=== PATIENT | female | born 1935 | race Caucasian/White ===

== ENCOUNTER → 2024-04-02 10:52 | Outpatient (REF) | payer OTHER, SELFPAY | LOC: HWRAD 10:52 | PROVIDERS: ATTENDING PHYSICIAN Student in an Organized Health Care Education/Training Program | DX: M43.9 Deforming dorsopathy, unspecified (principal) | CPT/HCPCS: 72072; 72110 ==

== ENCOUNTER → 2024-06-18 10:59 | Outpatient (REF) | payer OTHER, SELFPAY | LOC: HWRAD 10:59 | PROVIDERS: ATTENDING PHYSICIAN Student in an Organized Health Care Education/Training Program | DX: R05.1 Acute cough (principal) | CPT/HCPCS: 71046 ==

== ENCOUNTER 2024-08-11 12:47 | Observation (INO) | payer OTHER, SELFPAY ==
[2024-08-11] VITALS (9 sets, daily range): BP systolic 137–180; BP diastolic 57–142; PULSE 52; O2SAT 99; BMI 22.4
--- NOTE | 2024-08-11 07:52 | ED.GENMED ---
History of Present Illness
General
Chief Complaint: Dizziness
Time Seen by Provider: 08/11/24 07:51
History of Present Illness
History of Present Illness:
TIME OF INITIAL ENCOUNTER: 8 AM
HPI:
The patient is been having intermittent dizziness for the past 2 weeks. Today the symptoms worsened and were also present when she was laying flat. She has associated nausea. She came in by ambulance from home. She has no significant headache.
EXAM:
GENERAL: Well appearing but in mild distress mild
HEENT: Moist oral mucosa
CARDIOVASCULAR: No murmurs, normal heart rate, regular rhythm, No chest wall tenderness
PULMONARY: No respiratory distress, breath sounds are clear and equal
ABDOMEN: Soft with no peritoneal signs, no tenderness
NEUROLOGIC: Excellent strength all extremities, finger-nose normal on the right, maybe some very minimal impairment on the left if any, very subtle rightward nystagmus, positive [place]-Hallpike maneuver when looking to the left
PSYCHIATRIC: Appropriate mental status, normal insight and judgement
EXTREMITIES: Nontender, no edema, moves all extremities equally
SKIN: No rash, no lesions
NUMBER AND COMPLEXITY OF PROBLEMS ADDRESSED AT THE ENCOUNTER
� Chronic conditions affecting care: Rheumatoid arthritis
� Acute Exacerbation and/or Progression of Chronic Illness: This is an acute problem
� Differential Diagnosis includes: BPPV, dysrhythmia, intracranial pathology, dehydration
AMOUNT AND/OR COMPLEXITY OF DATA TO BE REVIEWED AND ANALYZED
� I performed an independent evaluation of and my interpretation is:
EKG: Sinus 58, leftward axis deviation, right bundle branch block
CT: CAT scan of the brain shows no acute abnormality
X-rays:
Laboratory Studies: CBC and chemistries relatively unremarkable
Other:
� Review of other/old records: The patient had a CAT scan of her brain in 2015 which was unremarkable after an evaluation for trauma
� Clinical information was obtained by an independent historian:
� Prescriptions/Medications Considered but not given:
� Further testing considered but not performed:
RISK OF COMPLICATIONS AND/OR MORBIDITY OR MORTALITY OF PATIENT MANAGEMENT
� Social determinants of health affecting care: Lives at home by herself
� Discussion with other providers: Dr. Lowery, hospitalist, for admission
� Escalation of care including admission/observation vs risk of discharge considered: Given patient's age, CT imaging obtained. She has a positive [place]-Hallpike maneuver. Will try low-dose Valium and Zofran for symptom control.
ANY OTHER UPDATES:
9 AM: The patient was seen by PT who did not feel that she was safe enough to go home. I have asked Dr. Lowery for admission.
Phy Exam
Physical Exam
Physical Exam:
See HPI
Course
Orders/Labs/Results
Orders:
Orders
08/11/24 07:57
Electrocardiogram (*1) Urgent
Reason for Study: Vertigo / Dizzy
EKG- Treatment ONCE
08/11/24 07:59
Basic Metabolic Panel Urgent
Complete Blood Count/With Diff Urgent
08/11/24 08:02
Ondansetron Injectable [Zofran] 4 mg IV NOW STA
diazePAM [Valium Injection] 2 mg IV NOW STA
Physical Therapy Consult [Pt Eval And Treat] Urgent
Treatment: vertigo
Activity Level: Ambulate
08/11/24 08:03
CT Head W/o Iv Contrast Urgent
Comment:
Reason For Exam: intermittently severe vertigo
08/11/24 08:52
Troponin I Urgent
Abnormal Lab Results
08/11/24
07:59
RBC 3.83 L 10^6/uL
(4.20-5.40)
MCH 33.7 H pg
(27.0-31.0)
BUN 22 H mg/dl
(7-17)
Glucose 102 H mg/dl
(70-99)
08/11/24 07:59
08/11/24 07:59
Vital Signs
Initial and Last Documented VS:
Initial Vital Signs
Temp Pulse Resp BP Pulse Ox
97.8 F 57 16 166/87 99
08/11/24 07:47 08/11/24 07:47 08/11/24 07:47 08/11/24 07:47 08/11/24 07:47
Last Documented Vital Signs
Temp Pulse Resp BP Pulse Ox
97.8 F 63 18 180/82 99
08/11/24 07:47 08/11/24 10:00 08/11/24 10:00 08/11/24 10:00 08/11/24 07:47
*Critical Care Note
Total Time (30-74mins, 75-104mins- exclusive of procedures): Not Applicable
ED Attending Note
-
Portions of this chart may have been created with voice recognition software.� Occasional wrong word or��sound alike� substitutions may have occurred due to the inherent limitations of voice recognition software.
Discharge Plan
Departure
Patient Disposition: Admit
Date of Disposition: 08/11/24
Time of Disposition: 09:20
Presentation/result/management discussed w/ accepting MD/DO: Hospitalist
Discharge Problem:
Vertigo
Prescriptions:
No Action
methotrexate sodium 2.5 mg Tablet
15 mg PO FR
Theragen Tablet
1 tab PO MOWEFR
folic acid 1 mg Tablet
1 mg PO DAILY
magnesium oxide 400 mg magnesium Tablet
400 mg PO TUTH
Referrals:
Luanne Parry DO [Family Provider] -
Interventions
Interventions:
*Risk Screen - Suicide Last Done: 08/11/24 07:47
*General Assessment Last Done: 08/11/24 07:47
*Neglect/Abuse Screening Last Done: 08/11/24 07:47
*ED COVID-19 Vaccine History Last Done: 08/11/24 07:47
ED- Neurological Assessment Last Done: 08/11/24 08:10
ED Swallowing Screen Last Done: 08/11/24 08:41
Discharge Date and Time
Print Language: KYRGYZ
[2024-08-11 08:06] LABS: % Basophils 0.6 % (0-2); % Eosinophils 5.7 % (0-6); % Immature Granulocytes 0.2 % (0-0.5); % Lymphocytes 27.6 % (20.5-51.1); % Neutrophils 58.9 % (42.2-75.2); Absolute Eosinophils 0.3 10^3/uL (0-0.7); Absolute Lymphocytes 1.5 10^3/uL (1.2-3.4); Absolute Monocytes 0.4 10^3/uL (0.1-0.6); Absolute Neutrophils 3.2 10^3/uL (1.4-6.5); Hematocrit 37.4 % (37.0-47.0); Hemoglobin 12.9 g/dL (12.0-16.0); Mean Corp Hgb Conc. 34.5 g/dL (33.0-37.0); Mean Corpuscular Hgb 33.7 pg (27.0-31.0); Mean Corpuscular Volume 97.7 fL (81.0-99.0); Mean Platelet Volume 9.7 fL (7.4-10.4); Nucleated Red Blood Cells % 0 %; Platelet Count 180 10^3/uL (130-400); Red Blood Cell Count 3.83 10^6/uL (4.20-5.40); Red Cell Dist. Width 14.5 % (11.5-14.5); White Blood Cell Count 5.4 10^3/uL (4.8-10.8)
[2024-08-11 08:23] LABS: Blood Urea Nitrogen 22 mg/dl (7-17); Calcium 9.2 mg/dl (8.4-10.2); Carbon Dioxide 23 mmol/L (22-30); Chloride 107 mmol/L (98-107); Glucose 102 mg/dl (70-99); Sodium 141 mmol/L (135-145); eGFR > 60.00
[2024-08-11] MEDS: ZOFRAN 4 MG IV (08:30)
[2024-08-11] MEDS: VALIUM INJECTION 2 MG IV (08:30)
[2024-08-11 09:32] LABS: Troponin I < 0.012 ng/ml
--- NOTE | 2024-08-11 11:24 | HPS.HSE ---
Family Physician
-
Family Physician: Luanne Parry
Chief Complaint
-
dizziness
History of Present Illness
Ms. Theresa Patle is a 89 yo woman with hx RA, GERD, CKD III, HLD presents to the ER with dizziness.
Symptoms started on and off 2 weeks ago, occurring sometimes daily and lasting several minutes. Patient described getting up from chair and having symptoms of room spinning. This morning she had symptoms when laying in bed and they lasted nearly
20 minutes which is why she called 911. She now feels a bit uneasy but denies the intense spinning.
No difficulty speaking or swallowing. No weakness in arms or legs that's new (she has RA). No fevers/chills. + congestion last week, took a decongestant but stopped once dizziness started. No chest pain or shortness of breath. + nausea with
episodes, no vomiting. No abdominal pain. No LE swelling.
Medical History
Past Medical History
Past Medical History: Reports GERD, Hypercholesterolemia and Other (rheumatoid arthritis, CKD III)
Past Surgical History: Reports Appendectomy
Social History
Tobacco: Former Smoker
Alcohol: None
Family History
Family History: Not pertinent
Allergies / Home Medications
Allergies reflects when Allergies were last updated in [facility].
Home Medications with original date entered in [facility]
Allergy/Medication List:
Allergies
Allergy/AdvReac Type Severity Reaction Status Date / Time
No Known Allergies Allergy Unverified 12/01/15 15:45
Home Medications
folic acid 1 mg tablet 1 mg PO DAILY 08/11/24
magnesium oxide 400 mg PO TUTH 08/11/24
methotrexate sodium 2.5 mg tablet 15 mg PO FR 08/11/24
therapeutic multivitamin 1 tab PO MOWEFR 08/11/24
Review of Systems
-
History Source: Patient
A 12 point ROS was completed and negative except as noted: Yes
Physical Exam
Vital Signs
Vital Signs
Temp Pulse Resp BP Pulse Ox
97.8 F 63 18 180/82 99
08/11/24 07:47 08/11/24 10:00 08/11/24 10:00 08/11/24 10:00 08/11/24 07:47
Physical Exam
General: No Apparent Distress
HEENT: PERRLA
Respiratory: Clear; No Wheezes
Cardiac: S1/S2 and Regular Rhythm
GI: Soft and Non Tender
Musculoskeletal: No Edema
Neuro: AO x 3 and Other (5/5 strength upper and lower extremities; no pronator drift; speech normal, no facial droop, EOMI; no nystagmus on my exam; test of skew negative )
Psych: Calm
Laboratory Results
-
08/11/24 07:59
08/11/24 07:59
Laboratory Results
Total Bilirubin Cancelled 08/11/24 07:59
AST Cancelled 08/11/24 07:59
ALT Cancelled 08/11/24 07:59
Alkaline Phosphatase Cancelled 08/11/24 07:59
Troponin I < 0.012 ng/ml 08/11/24 08:52
Data Reviewed
-
Diagnostic Radiology: Report Reviewed by me
Lab Data: Labs Reviewed by me
Impression/Plan
-
Ms. Theresa Patel is a 89 yo woman with hx RA, GERD, CKD III, HLD presents to the ER with dizziness.
Triage VS: T 97.8, P 57, RR 16, BP 166/87, SpO2 99%
LABS: WBC 5.4, Hg 12.9, PLT 180, Na 141, Cl 107, BUN 22, Cr 0.8, Trop negative
HEAD CT
IMPRESSION:
No acute intracranial abnormalities.
Findings again seen compatible with diffuse cortical atrophy with nonspecific white matter changes as described above.
Vertigo
-patient was seen by PT in the ER with positive laquita hallpike maneuver on right s/p right Nallely maneuver
-she was given Valium and Zofran
-admit to observation
-meclizine PRN
-continue vestibular PT
RA
-patient is on methotrexate Q Saturday
-BAKER TEST Folate
DVT PPx Lovenox subQ
DNR - confirmed on admission
[2024-08-11] MEDS: ANTIVERT 12.5 MG PO ×2 (12:33→20:59)
[2024-08-11 14:36] LABS: Magnesium 2.2 mg/dl (1.6-2.3); Potassium 4.3 mmol/L (3.5-5.1)
[2024-08-11] MEDS: FOLVITE 1.6 MG PO (16:37)
--- NOTE | 2024-08-11 16:54 | PTCARENOTE ---
patient reporting several episodes of 'dizziness'. when questioned further she said each episode is different , sometimes the room is spinning sometimes it isn't. stated that each episode only lasts about 30 seconds. each has happened while
patient is sitting with head of bed 45- 90 degrees in bed. instructed to alert nurse if continues with episodes . call mujica in reach. family at bedside. plan of care on going.
[2024-08-11] MEDS: LOVENOX 40 MG SC (18:23)
[2024-08-12 08:00] VITALS: BP 163/74
[2024-08-12] MEDS: FOLVITE 1.6 MG PO (08:01)
[2024-08-12 09:13] LABS: Blood Urea Nitrogen 22 mg/dl (7-17); Calcium 9.1 mg/dl (8.4-10.2); Carbon Dioxide 27 mmol/L (22-30); Chloride 106 mmol/L (98-107); Estimated Creatinine Clearance 36 ml/min; Glucose 86 mg/dl (70-99); Magnesium 2.3 mg/dl (1.6-2.3); Potassium 4.5 mmol/L (3.5-5.1); Sodium 143 mmol/L (135-145); eGFR 54.53
--- NOTE | 2024-08-12 11:00 | W.PN.HOSP.TC ---
Today's Communication/Plan
-
follow up repeat PT Eval
Assessment / Plan
Assessment / Plan
Ms. Theresa Patel is a 89 yo woman with hx RA, GERD, CKD III, HLD presents to the ER with dizziness/ vertigo found to have positive laquita hallpike maneuver in ER s/p Nallely.
HEAD CT
IMPRESSION:
No acute intracranial abnormalities.
Findings again seen compatible with diffuse cortical atrophy with nonspecific white matter changes as described above.
Vertigo
-patient was seen by PT in the ER with positive laquita hallpike maneuver on right s/p right Nallely maneuver
-she was given Valium and Zofran
-admitted to observation
-meclizine PRN
-continue vestibular PT - F/U repeat eval today
RA
-patient is on methotrexate Q Saturday
-[employer] Folate
DVT PPx Lovenox subQ
DNR - confirmed on admission
Anticipated Discharge: Within 24 hours
Subjective/Interval History
-
Date of Service: August 12, 2024
some balance difficulty moving around this morning and 3 episodes brief vertigo
she wants to go home
Objective Data
-
Labs:
Laboratory Results
08/12/24
07:08
Sodium 143
Potassium 4.5
Chloride 106
Carbon Dioxide 27
BUN 22 H
Creatinine 1.0
Glucose 86
Calcium 9.1
Vital Signs:
Vital Signs
Temp Pulse Resp BP Pulse Ox
97.8 F 55 16 163/74 99
08/12/24 08:00 08/12/24 08:00 08/12/24 08:00 08/12/24 08:00 08/12/24 08:00
I&O
08/11/24 08/12/24 08/13/24
06:59 06:59 06:59
Intake Total 240 / 240
Balance 240 / 240
Review of Systems
-
History Source: Patient
All other systems: Reviewed and negative
Physical Exam
-
General: No Apparent Distress
HEENT: PERRLA
Respiratory: Clear to Auscultation; Negative Wheezes
Cardiac: Regular Rhythm and S1/S2
GI: Soft and Nontender
Musculoskeletal: No Edema
Skin: Warm and Dry; Negative Rash
Neuro: AO x 3, Nonfocal/Grossly Intact and Other (FNF WNL; no nystagmus this morning)
Psych: Calm
Data Reviewed
-
Diagnostic Radiology: Report Reviewed by me
Labs: Labs Reviewed by me
[2024-08-12 14:36] VITALS: BP 156/72
--- NOTE | 2024-08-12 14:47 | W.DS.TRANS ---
DC Summary - [employer]
-
Discharge Instructions:
Discharge Diagnosis/Procedures Benign Paroxysmal Positional Vertigo
Diet Regular
Activity As tolerated
Driving Restrictions Not until seen by your Dr
Bathing Restrictions None
Other Services PT
Instructions:
Stand-Alone Forms:
Changes to Home Medications: Yes
Discharge Medications:
DC Medications w/original date entered in [facility]
folic acid 400 mcg tablet 1,600 mcg PO SUMOTUWETHSA Supplement 08/11/24
magnesium oxide 400 mg PO TUTH Supplement 08/11/24
methotrexate sodium 2.5 mg tablet 15 mg PO FR rheumatoid arthritis 08/11/24
naproxen 250 mg tablet 250 mg PO DAILY PRN pain 08/11/24
therapeutic multivitamin 1 tab PO MOWEFR Supplement 08/11/24
meclizine 12.5 mg tablet 12.5 mg PO Q8HPRN PRN vertigo #20 tabs 08/12/24
Home Medication Changes
addition of Meclizine PRN
Pending Results: No
--- NOTE | 2024-08-12 14:48 | W.DCSUMMARY ---
Discharge Summary
Discharge Data
Date of Admission: 08/11/24
Date of Discharge: 08/12/24
-
Pending Results: No
Hospital Course
Discharging Physician : Dr. Robyn Mai
Disposition : Home
Primary care physician : Dr. Luanne Parry
Principal Discharge diagnosis : Benign paroxysmal positional vertigo
Hospital Course :
Ms. Theresa Patel is a 89 yo woman with hx RA, GERD, CKD III, HLD presents to the ER with dizziness/ vertigo. Triage vitals stable. Labs unremarkable. Head CT negative. She worked with PT in the ER found to have a positive Jarratt Hallpike testing
followed by Nallely maneuver. Patient remained off balance, unsafe to go home, and was admitted to observation. She felt better the following day, worked with PT without e/o vertigo and cleared for discharge. She is discharged with script for
outpatient PT.
Important imaging findings :
Procedure findings :
Discharge Plan
-
Patient Disposition: Home (Routine Discharge)
Discharge Diagnosis/Procedures: Benign Paroxysmal Positional Vertigo
Diet: Regular
Activity: As tolerated
Driving Restrictions: Not until seen by your Dr
Bathing Restrictions: None
Other Services: PT
Activity Restrictions/Additional Instructions:
Please follow up with outpatient physical therapy
Referrals:
Luanne Parry, DO [Family Provider] - in less than 1 week
Prescriptions:
New
meclizine 12.5 mg Tablet
12.5 mg PO Q8HPRN PRN (Reason: vertigo) Qty: 20 0RF
Continued
methotrexate sodium 2.5 mg Tablet
15 mg PO FR
therapeutic multivitamin Tablet
1 tab PO MOWEFR
magnesium oxide 400 mg magnesium Tablet
400 mg PO TUTH
naproxen 250 mg Tablet
250 mg PO DAILY PRN (Reason: pain)
folic acid 400 mcg Tablet
1,600 mcg PO SUMOTUWETHSA
Discharge Orders:
Discharge Patient (As Directed); Ordered 08/12/24
Ordered By: Robyn Mai
Discharge Date and Time
Print Language: HEBREW
[2024-08-12 15:04] VITALS: BP 147/81
== END 2024-08-12 15:28 | disposition home or self-care (01) ==
LOC: 4 EAST ACU 12:47
PROVIDERS: ADMITTING PHYSICIAN Student in an Organized Health Care Education/Training Program; EMERGENCY PHYSICIAN Emergency Medicine; FAMILY PHYSICIAN Family Medicine
DX: H81.10 Benign paroxysmal vertigo, unspecified ear (principal); R11.0 Nausea; M06.9 Rheumatoid arthritis, unspecified; I45.10 Unspecified right bundle-branch block; K21.9 Gastro-esophageal reflux disease without esophagitis; N18.30 Chronic kidney disease, stage 3 unspecified; E78.00 Pure hypercholesterolemia, unspecified; G31.9 Degenerative disease of nervous system, unspecified; R00.1 Bradycardia, unspecified; Z87.891 Personal history of nicotine dependence; Z66 Do not resuscitate
CPT/HCPCS: 70450; 80048; 83735; 84132; 84484; 85025; 93005; 96374; 96375; 97112; 99285; G0378

== ENCOUNTER → 2025-07-09 12:54 | Outpatient (REF) | payer OTHER, SELFPAY | LOC: RAD 12:54 | PROVIDERS: ATTENDING PHYSICIAN Physician Assistant; FAMILY PHYSICIAN Internal Medicine Geriatric Medicine | DX: M81.0 Age-related osteoporosis without current pathological fracture (principal) | CPT/HCPCS: 77080 ==

== ENCOUNTER → 2025-09-10 13:55 | Outpatient (REF) | payer OTHER, SELFPAY | LOC: RAD 13:55 | PROVIDERS: ATTENDING PHYSICIAN Nurse Practitioner Primary Care | DX: J22 Unspecified acute lower respiratory infection (principal) | CPT/HCPCS: 71046 ==